=== PATIENT | male | born 1975 | race Caucasian/White ===

== ENCOUNTER 2017-11-19 12:07 | Emergency (ER) | payer BC, OTHER ==
[~2017-11-19] VITALS: Ht 180.3 cm; Wt 86.9 kg
[2017-11-19 12:13] VITALS: Ht 180.3 cm; Wt 86.9 kg
[2017-11-19] MEDS ORDERED: SODIUM CHLORIDE 0.9% 500ML 500 ML IV STA (12:34)
--- NOTE | 2017-11-19 12:40 | EMERGENCY ROOM VISIT NOTE ---
History First contact with patient: 12:29 Chief Complaint: ANXIETY Stated Complaint: Anxious History of Present Illness The patient is a 42 year old male who presents to the Emergency Room with complaints of feeling like he may pass out a few hours ago. The patient denies chest pain or palpitations, he was not short of breath. He has been in baseline health as of late. He does drink alcohol nightly, he drank last night as usual. He has never felt this way after a night of alcohol use. There has been no medication changes recently, he has not had increased stressors in his life. He denies feeling anxious or depressed. He is not suicidal or homicidal. The patient states that he was shaving and just felt like he may pass out. The feeling has basically passed. He has never felt this way before. He did have breakfast this morning. Source of History: patient Onset: a few hours ago Position: other (global) Quality: other (feelings of syncope ) Timing: other (sudden ) Associated Symptoms: No chest pain, No SOB Review of Systems ROS: Please see HPI. At least 10 systems in total were reviewed and otherwise negative. Past Medical/Surgical History Patient does use alcohol heavily. No history of heart disease or NM. Family History No pertinent family history Social History Smoking Status: Never Smoker Alcohol Use: heavy Current/Historical Medications Scheduled Sertraline (Zoloft), 50 MG PO QPM Physical Exam Vital Signs Date Time Temp Pulse Resp B/P (MAP) Pulse Ox O2 Delivery O2 Flow Rate FiO2 11/19/17 15:18 36.5 50 18 142/77 97 11/19/17 14:50 60 18 133/85 97 Room Air 11/19/17 12:50 53 11/19/17 12:50 60 18 128/86 97 Room Air 67 137/88 58 142/93 11/19/17 12:49 99 Room Air 11/19/17 12:13 36.5 68 18 160/98 98 Room Air Physical Exam GENERAL: Patient is in no acute distress. He does appear slightly anxious. HEENT: No acute trauma, normocephalic atraumatic, mucous membranes moist, no nasal congestion, no scleral icterus. Pupils equal and reactive to light. NECK: No stridor, no adenopathy, no meningismus, trachea is midline. LUNGS: Clear to auscultation bilaterally, no wheeze, no rhonchi, breath sounds equal. HEART: Without murmurs gallops or rubs, regular rate and rhythm. ABDOMEN: Soft, nontender, bowel sounds positive, no hernias, no peritonitis. EXTREMITIES: No cyanosis or edema, full range of motion of all the joints without pain or difficulty, no signs for acute trauma. NEUROLOGIC: Oriented x 3, no acute motor or sensory deficits, no focal weakness. No cerebellar dysfunction or pronator drift. SKIN: No rash, no jaundice, no diaphoresis. Medical Decision & Procedures ER Provider Diagnostic Interpretation: Radiology results as stated below per my review and radiologist interpretation: CHEST ONE VIEW PORTABLE CLINICAL HISTORY: Altered mental status. Weakness. COMPARISON STUDY: No previous studies for comparison. FINDINGS: The cardiac and mediastinal contours are normal. There is no evidence of focal pulmonary consolidation. There is no evidence of failure. No pleural effusions are visualized.[ IMPRESSION: No active disease in the chest. Electronically signed by: Yogi Milan M.D. 11/19/2017 1:24 PM Dictated Date/Time: 11/19/2017 1:24 PM Laboratory Results 11/19/17 12:45 Red Blood Count 4.76, Mean Corpuscular Volume 89.9, Mean Corpuscular Hemoglobin 30.3, Mean Corpuscular Hemoglobin Concent 33.6, Mean Platelet Volume 10.4, Neutrophils (%) (Auto) 63.2, Lymphocytes (%) (Auto) 24.8, Monocytes (%) (Auto) 6.9, Eosinophils (%) (Auto) 4.7, Basophils (%) (Auto) 0.2, Neutrophils # (Auto) 3.46, Lymphocytes # (Auto) 1.36, Monocytes # (Auto) 0.38, Eosinophils # (Auto) 0.26, Basophils # (Auto) 0.01 11/19/17 12:45 Test 11/19/17 12:45 11/19/17 14:46 White Blood Count 5.48 K/uL (4.8-10.8) Red Blood Count 4.76 M/uL (4.7-6.1) Hemoglobin 14.4 g/dL (14.0-18.0) Hematocrit 42.8 % (42-52) Mean Corpuscular Volume 89.9 fL (80-100) Mean Corpuscular Hemoglobin 30.3 pg (25-34) Mean Corpuscular Hemoglobin Concent 33.6 g/dl (32-36) Platelet Count 223 K/uL (130-400) Mean Platelet Volume 10.4 fL (7.4-10.4) Neutrophils (%) (Auto) 63.2 % Lymphocytes (%) (Auto) 24.8 % Monocytes (%) (Auto) 6.9 % Eosinophils (%) (Auto) 4.7 % Basophils (%) (Auto) 0.2 % Neutrophils # (Auto) 3.46 K/uL (1.4-6.5) Lymphocytes # (Auto) 1.36 K/uL (1.2-3.4) Monocytes # (Auto) 0.38 K/uL (0.11-0.59) Eosinophils # (Auto) 0.26 K/uL (0-0.5) Basophils # (Auto) 0.01 K/uL (0-0.2) RDW Standard Deviation 46.2 fL (36.4-46.3) RDW Coefficient of Variation 14.0 % (11.5-14.5) Immature Granulocyte % (Auto) 0.2 % Immature Granulocyte # (Auto) 0.01 K/uL (0.00-0.02) Anion Gap 7.0 mmol/L (3-11) Est Creatinine Clear Calc Drug Dose 116.1 ml/min Estimated GFR () 123.4 Estimated GFR (Non- 106.5 BUN/Creatinine Ratio 20.9 (10-20) Calcium Level 8.2 mg/dl (8.5-10.1) Magnesium Level 2.2 mg/dl (1.8-2.4) Total Bilirubin 0.4 mg/dl (0.2-1) Aspartate Amino Transf (AST/SGOT) 24 U/L (15-37) Alanine Aminotransferase (ALT/SGPT) 26 U/L (12-78) Alkaline Phosphatase 72 U/L (45-117) Total Protein 7.5 gm/dl (6.4-8.2) Albumin 3.9 gm/dl (3.4-5.0) Globulin 3.6 gm/dl (2.5-4.0) Albumin/Globulin Ratio 1.1 (0.9-2) Thyroid Stimulating Hormone (TSH) 1.610 uIu/ml (0.300-4.500) Bedside Troponin I < 0.030 ng/ml (0-0.045) Laboratory results reviewed by me. Medications Administered Medications (Trade) Dose Ordered Sig/Elder Route Start Time Stop Time Status Last Admin Dose Admin Sodium Chloride 500 ml @ 999 mls/hr Q31M STAT IV 11/19/17 12:34 11/19/17 13:04 DC 11/19/17 12:56 999 MLS/HR ECG Per My Interpretation Indication: weakness Rate (beats per minute): 61 Rhythm: normal sinus Findings: other (no ST elevation, no PAC's) ED Course 1234: Ordered Sodium Chloride 500 ml @ 999 mls/hr IV. 1301: Orthostatic vital signs are negative. 1355: I updated the patient and he is doing fine. We are still waiting on the second troponin. 1450: Reevaluated the patient. Discussed results and discharge instructions: He verbalized understanding and agreement. The patient is ready for discharge. Medical Decision Differential diagnosis includes dysrhythmia, anemia, dehydration, alcohol use, electrolyte imbalance, NM, anxiety or cardiomegaly. There is no leukocytosis or concerning anemia. No significant electrolyte abnormality, kidney failure or hepatitis. Orthostatic vital signs are negative. EKG shows a sinus rhythm, no acute ischemia. Cardiac enzyme testing 2 is not suggestive of acute cardiac injury. Chest x-ray does not show CHF, mediastinal widening or cardiomegaly. The patient appears to be in a euthyroid state. The patient presents with a feeling of oncoming or near syncope. His symptoms have pretty much resolved at this point. He did receive IV saline, The patient's workup is benign, he has been reassured. I did talk to him about his alcohol use and the fact that his symptoms may be related to the heavy drinking last night, he understands. If worsening, he will return. Medication Reconcilliation Current Medication List: was personally reviewed by me Blood Pressure Screening Patient's blood pressure: Elevated blood pressure Blood pressure disposition: Elevated BP felt to be situational Impression Primary Impression: Near syncope Departure Information Dispostion Home / Self-Care Referrals Efraín Figueroa M.D. (PCP) Sahra Cruz M.D. Forms HOME CARE DOCUMENTATION FORM, IMPORTANT VISIT INFORMATION Patient Instructions My [facility] Additional Instructions stay well hydrated follow with giovana hutchins for a reheck this week return for worsening symptoms heart testing and lab testing was all ok today
[2017-11-19 12:49] VITALS: O2SAT 99
[2017-11-19 12:53] LABS: BASO % 0.2 %; BASO ABS # 0.01 K/uL (0-0.2); EOS % 4.7 %; EOS ABS # 0.26 K/uL (0-0.5); HEMATOCRIT 42.8 % (42-52); HEMOGLOBIN 14.4 g/dL (14.0-18.0); IG# 0.01 K/uL (0.00-0.02); LYMPH % 24.8 %; LYMPH ABS # 1.36 K/uL (1.2-3.4); MEAN CELL VOLUME 89.9 fL (80-100); MEAN CORPUSCULAR HEMOGLOBIN 30.3 pg (25-34); MEAN CORPUSCULAR HGB CONC 33.6 g/dl (32-36); MEAN PLATELET VOLUME 10.4 fL (7.4-10.4); MONO % 6.9 %; MONO ABS # 0.38 K/uL (0.11-0.59); NEUT % 63.2 %; NEUT ABS # 3.46 K/uL (1.4-6.5); PLATELET COUNT 223 K/uL (130-400); RED CELL DISTRIBUTION WIDTH SD 46.2 fL (36.4-46.3); WHITE BLOOD COUNT 5.48 K/uL (4.8-10.8)
[2017-11-19 13:15] LABS: ALBUMIN 3.9 gm/dl (3.4-5.0); CALCIUM 8.2 mg/dl (8.5-10.1); CREATININE 0.9 mg/dl (0.60-1.40); POTASSIUM 4.4 mmol/L (3.5-5.1)
[2017-11-19] MEDS ORDERED: SERT50TA PO (13:25)
[2017-11-19 13:26] LABS: TOTAL PROTEIN 7.5 gm/dl (6.4-8.2)
--- NOTE | 2017-11-19 13:26 | DIAGNOSTIC IMAGING REPORT ---
CHEST ONE VIEW PORTABLE CLINICAL HISTORY: Altered mental status. Weakness. COMPARISON STUDY: No previous studies for comparison. FINDINGS: The cardiac and mediastinal contours are normal. There is no evidence of focal pulmonary consolidation. There is no evidence of failure. No pleural effusions are visualized.[ IMPRESSION: No active disease in the chest. Electronically signed by: Yogi Milan M.D. 11/19/2017 1:24 PM Dictated Date/Time: 11/19/2017 1:24 PM
[2017-11-19 15:18] VITALS: BP 142/77; PULSE 50; TEMP 36.5; O2SAT 97
== END 2017-11-19 15:20 | disposition home or self-care (01) ==
LOC: EDBD 12:07 → C.EDA 12:08
DX: R55 Syncope and collapse (principal); R03.0 Elevated blood-pressure reading, without diagnosis of hypertension; F10.99 Alcohol use, unspecified with unspecified alcohol-induced disorder